=== PATIENT | male | born 1940 | race Caucasian/White ===

== ENCOUNTER → 2020-11-26 15:24 | Outpatient (CLI) | payer MEDICARE, SELFPAY ==
--- NOTE | 2020-11-26 15:32 | DI.MRI.S_ITS ---
PROCEDURE: MR STROKE Pre- and post-contrast brain MRI, non-contrast brain MR angiogram, pre- and postcontrast neck MR angiogram INDICATIONS: Personal history of transient ischemic attack (TIA) TECHNIQUE: Brain: Noncontrast axial T1 spin echo, axial T2 fast spin echo, sagittal and axial FLAIR, coronal T2 fast spin echo, axial gradient echo, axial diffusion and ADC through the brain. After the administration of contrast, axial 3D VIBE of the cranial vasculature and brain. Brain MRA: Non-contrast 3-D time of flight MR angiogram, with multiple rfpjuzo-muflyicsy-jhpmoipxse (MIP) reformats performed. Neck MRA: Axial and sagittal TruFISP through the neck. Coronal dynamic MR angiogram during administration of contrast in the arterial and venous phases, with 3-dimenstional sdmkjmv-buvjhkpan-qqlxjrpceg (MIP) reformats constructed from subtraction images. COMPARISON: CT, HEAD WITHOUT CONTRAST, 01/03/2017, 13:27. FINDINGS: Image quality: Excellent. BRAIN: CSF spaces: Ventricles are normal in size and shape. Basal cisterns are patent. No extra-axial fluid collections. Brain: No intracranial bleeds or mass effects. Mild diffuse cerebral volume loss. Mild degree of patchy high FLAIR signal within the periventricular and subcortical white matter. Koenig-white matter interface is normal. Diffusion weighted images show no acute ischemic insults. Brainstem appears normal. Normal intravascular flow voids are present. No abnormal intracranial enhancement. Skull and face: Calvarial marrow signal is normal. Orbits appear normal. Sinuses: Sinuses and mastoids are clear. BRAIN MR ANGIOGRAM: Anterior circulation: Intracranial internal carotid arteries are normal in size and enhancement. The flow within the paired anterior cerebral arteries is normal and symmetric. The flow within the middle cerebral arteries is normal and symmetric. The anterior communicating artery is seen. No stenoses, occlusions, or aneurysms. Posterior circulation: The visualized portions of the vertebral arteries demonstrate normal caliber, and join to form a normal appearing basilar artery. The flow within the posterior cerebral arteries is normal and symmetric. No stenoses, occlusions, or aneurysms. NECK MR ANGIOGRAM: Carotids: Great vessels demonstrate a conventional anatomy as they arise from the aortic arch. The origins of the common carotid arteries appear patent. The calibers and courses of both common carotid arteries are normal. The bifurcation regions appear normal bilaterally. The internal carotid arteries demonstrate normal course and caliber. Posterior circulation: Right vertebral artery origin is patent. Left vertebral artery demonstrates a moderate origin stenosis. More superior portions of both vertebral arteries demonstrate normal course and caliber, and join to form a normal appearing basilar artery. Miscellaneous: Subclavian arteries appear patent. Pre-contrast images through the neck show no soft tissue abnormalities. IMPRESSION: BRAIN MRI: 1. Mild volume loss and small vessel ischemic disease. 2. No acute process. No recent infarct. BRAIN MR ANGIOGRAM: Negative cerebral MR angiography. NECK MR ANGIOGRAM: 1. No internal carotid artery stenosis bilaterally. 2. Patent right vertebral artery. Moderate stenosis of the left vertebral artery origin which is otherwise patent. Dictated by: Livan Elias M.D. on 11/27/2020 at 9:09 Approved by: Livan Elias M.D. on 11/27/2020 at 9:12
--- NOTE | 2020-11-26 15:33 | DI.US.S_ITS ---
PROCEDURE: US CAROTID DOPPLER BI INDICATIONS: Personal history of transient ischemic attack (TIA TECHNIQUE: Color and pulse Doppler interrogation was performed of both carotid systems, with image documentation and velocity measurements. COMPARISON: [facility], , CAROTID ARTERY DOPPLER BILAT, 02/16/2017, 9:44. FINDINGS: Stenosis calculations are based on SRU (Society of Radiologists in Ultrasound) criteria. Right side: Brachial blood pressure: 150/79 mm Hg. Common carotid artery peak systolic velocity: 86 cm/sec. Internal carotid artery peak systolic velocity: 67 cm/sec. Internal carotid artery end diastolic velocity: 29 cm/sec. External carotid artery peak systolic velocity: 82 cm/sec. ICA/CCA peak systolic ratio: 0.8 . Koenig scale imaging description: Mild plaque Percent internal carotid artery stenosis: Less than 50% . Vertebral artery: Flow direction is antegrade. Left side: Brachial blood pressure: 150/79 mm Hg. Common carotid artery peak systolic velocity: 83 cm/sec. Internal carotid artery peak systolic velocity: 56 cm/sec. Internal carotid artery end diastolic velocity: 24 cm/sec. External carotid artery peak systolic velocity: 55 cm/sec. ICA/CCA peak systolic ratio: 0.7 . Koenig scale imaging description: Mild scattered plaque. Percent internal carotid artery stenosis: Less than 50% . Vertebral artery: Flow direction is antegrade. IMPRESSION: Less than 50% bilateral internal carotid artery stenosis which appears similar prior examination. Dictated by: Jeferson Wilson [facility] Interpreted: Demond Morrison MD on 11/26/2020 at 16:40 Approved by: Demond Morrison M.D. on 11/26/2020 at 17:08
== END ==
PROVIDERS: PCP Student in an Organized Health Care Education/Training Program; Referring Provider Student in an Organized Health Care Education/Training Program; Visit Provider Student in an Organized Health Care Education/Training Program
DX: I65.23 Occlusion and stenosis of bilateral carotid arteries; I65.02 Occlusion and stenosis of left vertebral artery; I10 Essential (primary) hypertension; Z86.73 Personal history of transient ischemic attack (TIA), and cerebral infarction without residual deficits
CPT/HCPCS: 70548; 70553; 93880; A9579

== ENCOUNTER → 2020-12-22 15:45 | Outpatient (CLI) | payer MEDICARE, SELFPAY ==
--- NOTE | 2020-12-22 15:47 | DI.ECHO.S_ITS ---
[place]---------+ [facility] +---------+ : : [address] : : : : [id number] : : : : Phone: [phone] Echocardiogram Report + + :Name: ELIAS LAY Study Date: 12/22/2020 Height: 70 in : :[facility] ReadingLocation: Weight: 188 lb : : Gender: Male BSA: 2.0 m2 : :: 1940 Age: 80 yrs BP: 149/92 mmHg: :Reason For Study: HYPERTENSION : :Ordering Physician: MIKEY, : :PEPE Performed By: Radha Cade : :Referring: PEPE JENSEN : + + Interpretation Summary Normal left ventricle size with ejection fraction 55-60%. The aortic valve is mildly calcified. Mild aortic regurgitation. The ascending aorta is moderately enlarged (4.2 cm). Comparison is made with the echocardiogram of 03/16/2017, there has been no significant change. Procedure: A two-dimensional transthoracic echocardiogram with color flow and Doppler was performed. The study quality was technically adequate. Comparison is made with the echocardiogram of 03/16/2017. The patient was in sinus bradycardia with heart rates between 57-64 bpm during the exam. Left Ventricle: The left ventricle is normal in size and wall thickness. The ejection fraction is estimated to be 55-60%. There are no focal wall motion abnormalities. Diastolic parameters suggest probable normal left ventricular diastolic function and normal filling pressures. Right Ventricle: The right ventricle is normal in size and function. Atria: The left atrial size is normal. Right atrial size is normal. There is no Doppler evidence for an interatrial shunt. Mitral Valve: The mitral valve leaflets appear borderline thickened, but open well. There is no mitral regurgitation noted. Aortic Valve: The aortic valve is trileaflet. The aortic valve is mildly calcified. There is no aortic valve stenosis. There is mild aortic regurgitation. Tricuspid Valve: The tricuspid valve is normal in structure and function. There is trace tricuspid regurgitation. Pulmonary artery pressures cannot be estimated because of the lack of a measurable TR jet velocity but the IVC suggests a CVP of around 3 mmHg. Pulmonic Valve: The pulmonic valve leaflets are thin and pliable; valve motion is normal. There is no pulmonic valvular regurgitation. Great Vessels: The aortic root is normal size. The ascending aorta is moderately enlarged. The IVC is of normal diameter and collapses greater than 50% with a sniff. This suggests a low right atrial pressure of 3 mm Hg. Pericardium/ Pleura There is no pericardial effusion. There is no pleural effusion. MMode/2D Measurements & Calculations LVIDd: 5.1 cm LVOT diam: 2.0 cm LVIDs: 3.4 cm Ao root diam: 3.2 cm FS: 33.1 % asc Aorta Diam: 4.2 cm EPSS: 1.0 cm Ao Arch Diam (Prox Trans): 2.9 cm IVSd: 1.00 cm LVPWd: 0.94 cm LV sinclair. diameter/BSA (cm/m^2): 2.5 LV sys. diameter/BSA (cm/m^2): 1.7 LA A2 area: 19.6 cm2 RA long axis: 5.3 cm LA A4 area: 16.5 cm2 RA area: 14.0 cm2 LA length (vol): 5.4 cm RA vol: 31.4 ml LA vol: 51.0 ml RA : 15.4 ml/m2 LA vol index: 25.1 ml/m2 IVC diam: 1.5 cm RVD1 (basal): 3.5 cm TAPSE: 2.2 cm Doppler Measurements & Calculations Ao V2 max: 156.0 cm/sec LVOT Max Byron: 89.2 cm/sec Ao V2 mean: 99.3 cm/sec LV V1 max P.2 mmHg Ao max P.7 mmHg LV V1 VTI: 18.9 cm Ao mean P.6 mmHg RAJANI(I,D): 1.8 cm2 Ao V2 VTI: 32.5 cm RAJANI(V,D): 1.8 cm2 sev ratio: 0.58 RAJANI indexed to BSA (cm^2/m^2): 0.89 MV E max byron: 70.6 cm/sec PA V2 max: 116.0 cm/sec MV A max byron: 83.8 cm/sec PA V2 mean: 71.6 cm/sec MV E/A: 0.84 PA mean P.4 mmHg Med Peak E' Byron: 8.2 cm/sec PA pr(Accel): 43.0 mmHg E/E' med: 8.6 Lat Peak E' Byron: 8.8 cm/sec E/E' lat: 8.0 E/e' average: 8.3 MV dec time: 0.23 sec SV(LVOT): 59.1 ml Electronically signed by: Litzy Vela on Reading Physician:12/23/2020 08:24 AM
== END ==
PROVIDERS: PCP Student in an Organized Health Care Education/Training Program; Referring Provider Student in an Organized Health Care Education/Training Program; Visit Provider Student in an Organized Health Care Education/Training Program
DX: I10 Essential (primary) hypertension (principal); Z86.73 Personal history of transient ischemic attack (TIA), and cerebral infarction without residual deficits; I35.1 Nonrheumatic aortic (valve) insufficiency; I51.7 Cardiomegaly
CPT/HCPCS: 93306

== ENCOUNTER 2021-01-06 03:46 | Emergency (ER) | payer MEDICARE, SELFPAY ==
[2021-01-06 04:00] VITALS: BP 159/72; PULSE 70; RESP 16; TEMP 36.7; O2SAT 98; BMI 26.9
--- NOTE | 2021-01-06 04:47 | ED_ITS ---
HPI - Skin/Abscess/Foreign Bdy General Chief complaint: Skin/Abscess/Foreign Body Stated complaint: thinks surgery site is infected on back Time Seen by Provider: 01/06/21 03:48 Source: patient Mode of arrival: Ambulatory Limitations: no limitations History of Present Illness HPI narrative: 80M nonsmoker with history of TIA presents with a chief complaint of some pain and redness on his back at the location of biopsies performed 2 weeks ago by his primary care provider. He had been doing well but for the past few days he states it become increasingly red, itchy and painful. He denies any drainage. He has had no fever chills. Denies any chest pain or shortness of breath. Onset (ago): day(s) Tetanus up to date: yes Location: back Severity: mild Quality: burning, aching and pruritic Pain Consistency: constant Relieving factors: none Exacerbating factors: none Associated symptoms: denies other symptoms Treatments prior to arrival: none Related Data Previous Rx's Medication Instructions Recorded cephalexin 500 mg PO BID #14 cap 01/06/21 Allergies Allergy/AdvReac Type Severity Reaction Status Date / Time No Known Allergies Allergy Uncoded 12/28/17 12:59 Review of Systems Constitutional Constitutional: Denies chills, Denies fatigue, Denies fever(s), Denies frequent falls, Denies lethargy and Denies weakness Eyes Eyes: Denies change in vision, Denies eye discharge, Denies irritation and Denies loss of vision ENT Ears, Nose, Mouth, and Throat: Denies change in voice, Denies dizziness, Denies neck pain, Denies sore throat and Denies throat swelling Cardiovascular Cardiovascular: Denies chest pain, Denies irregular heart rhythm, Denies lightheadedness, Denies palpitations, Denies dyspnea, Denies dyspnea on exertion and Denies orthopnea Respiratory Respiratory: Denies cough, Denies dyspnea, Denies dyspnea on exertion and Denies wheezing Gastrointestinal Gastrointestinal: Denies abdominal pain, Denies change in bowel habits, Denies diarrhea, Denies nausea and Denies vomiting Musculoskeletal Musculoskeletal: Denies neck pain and Denies numbness Integumentary/Breasts Skin/Breast: Denies pruritus, Reports erythema, Denies rash and Reports wounds Neurologic Neurologic: Denies behavioral changes, Denies confusion, Denies dizziness, Denies frequent falls, Denies loss of vision, Denies numbness and Denies weakness Psychiatric Psychiatric: Denies anxiety, Denies behavioral changes, Denies confusion, Denies depression, Denies homicidal ideation and Denies suicidal ideation Endocrine Endocrine: Denies fatigue, Denies flushing and Denies palpitations Hematologic/Lymphatic Hematologic/Lymphatic: Denies easy bruising Allergic/Immunologic Allergic/Immunologic: Denies urticaria, Denies throat swelling and Denies wheezing Patient History Social History Smoking Status: Never smoker Smoking Status: Never smoker alcohol intake frequency: 0-2 drinks per day Substance Use Type: does not use Exam Narrative Exam Narrative: GEN: AOx3 and in mild distress EYES: Pupils are equal, round, and reactive to light and accommodation. Extraoccular muscles are intact bilaterally. There is no subconjunctival hemor rhage or exudate. CHEST: Lungs are clear to auscultation bilaterally and free of wheezes, rales, or rhonchi. Heart rate is regular rhythm, there are no murmurs, clicks, rubs, or gallops. There is no chest wall tenderness. ABD: Abdomen is soft and nontender. There is no guarding or rebound. Bowel sounds are normal in all 4 quadrants. There is no mass or organomegaly. EXT: Full painless ROM of all extremities with no loss of sensation or strength. SKIN: Deep red, pruritic skin measuring 2 x 2 cm at the site of both biopsy locations. There is no drainage, fluctuance or induration. Initial Vital Signs Initial Vital Signs: Vital Signs Temperature 98.0 F 01/06/21 04:00 Pulse Rate 70 01/06/21 04:00 Respiratory Rate 16 01/06/21 04:00 Blood Pressure 159/72 H 01/06/21 04:00 Pulse Oximetry 98 01/06/21 04:00 Course Vital Signs Vital signs: Vital Signs - 8 hr 01/06/21 04:00 Temperature 98.0 F Pulse Rate 70 Respiratory Rate 16 Blood Pressure 159/72 H Pulse Oximetry 98 MDM - Skin/Abscess/Foreign Bdy MDM Narrative Medical decision making narrative: Patient had been using Neosporin for the past few weeks and despite this his symptoms have worsened over the past few days. There was some discussion about whether this was natural healing or the presence of infection but given the fact that he had been doing better and now is developing pain and redness we elected to treat with antibiotics. He has been given return precautions and has had questions answered to his apparent satisfaction Discharge Plan Departure Patient Disposition: Home Clinical Impression: Cellulitis Qualifiers: Site of cellulitis: trunk Site of cellulitis of trunk: back Qualified Code(s): L03.312 - Cellulitis of back [any part except buttock] Instructions: DI for Wound Infection Activity Restrictions/Additional Instructions: *You have been diagnosed with [ mild cellulitis at biopsy site ] *What to do: *Take medications as directed *Follow up with your primary care provider in 2-3 days, call for an appointment. Let them know you were seen in the Emergency Department and that we ask that you be seen in follow up *Return to ER if you should have any new, worsening or concerning symptoms Prescriptions: New cephalexin 500 mg capsule 500 mg PO BID Qty: 14 RF: 0 Referrals: Herlinda Mayberry MD [Primary Care Provider] -
== END 2021-01-06 05:03 | disposition home or self-care (01) ==
PROVIDERS: Emergency Provider Emergency Medicine; PCP Student in an Organized Health Care Education/Training Program
DX: L03.312 Cellulitis of back [any part except buttock and flank] (principal)
CPT/HCPCS: 99281

== ENCOUNTER → 2021-06-24 12:34 | Outpatient (CLI) | payer MEDICARE, SELFPAY ==
--- NOTE | 2021-06-24 | DI.RAD.S_ITS ---
PROCEDURE: XR KNEE RT 3V INDICATIONS: RIGHT KNEE PAIN TECHNIQUE: 3 views of the knee were acquired. COMPARISON: [facility], , KNEE 3V LEFT, 06/20/2017, 12:06. FINDINGS: Bones: No acute, displaced fracture. Mild medial compartment joint space narrowing with small osteophytosis. Mild to moderate narrowing of the lateral patellofemoral articulation with small osteophytosis. No suspicious bony lesions. Soft tissues: Small joint effusion. No suspicious soft tissue calcifications. IMPRESSION: No acute osseous abnormality. Dictated by: Javier Beckwith M.D. on 06/24/2021 at 13:14 Approved by: Javier Beckwith M.D. on 06/24/2021 at 13:19
== END ==
PROVIDERS: PCP Student in an Organized Health Care Education/Training Program; Referring Provider Student in an Organized Health Care Education/Training Program; Visit Provider Student in an Organized Health Care Education/Training Program
DX: M25.561 Pain in right knee (principal)
CPT/HCPCS: 73562

== ENCOUNTER → 2021-07-15 07:57 | Outpatient (CLI) | payer MEDICARE, SELFPAY ==
--- NOTE | 2021-07-15 | DI.US.S_ITS ---
PROCEDURE: US ABD AORTA ANEURYSM SCREEN INDICATIONS: HISTORY SMOKING TECHNIQUE: Real time scanning was performed of the aorta and iliac arteries, with image documentation. COMPARISON: None. FINDINGS: Aorta: Proximal aortic diameter measures 2.6 cm. Mid-aorta measures 1.7 cm. Distal aortic diameter is 1.6 cm. Iliac arteries: Right common iliac artery measures 1.2 cm. Left common iliac artery measures 1.2 cm. IMPRESSION: No sonographic evidence of aortic aneurysm. Dictated by: Javier Beckwith M.D. on 07/15/2021 at 9:17 Approved by: Javier Beckwith M.D. on 07/15/2021 at 9:19
== END ==
PROVIDERS: PCP Student in an Organized Health Care Education/Training Program; Referring Provider Internal Medicine Cardiovascular Disease; Visit Provider Internal Medicine Cardiovascular Disease
DX: Z13.6 Encounter for screening for cardiovascular disorders (principal); Z87.891 Personal history of nicotine dependence
CPT/HCPCS: 76706

== ENCOUNTER → 2022-06-16 13:37 | Outpatient (CLI) | payer MEDICARE, SELFPAY ==
[2022-06-16 14:33] LABS: Add Manual Diff / Slide Review NO; Basophils Absolute Auto 0 /uL (0-100); Basophils Percent Auto 0.5 % (0-2); Eosinophils Absolute Auto 100 /uL (0-450); Eosinophils Percent Auto 2.1 % (2-4); Hematocrit 40.2 % (41-53); Hemoglobin 14.1 g/dL (13.5-17.5); Lymphocytes Absolute Auto 1500 /uL (1100-4500); Lymphocytes Percent Auto 25.2 % (25-40); Mean Corpuscular HGB Conc 34.9 % (30-36); Mean Corpuscular Hemoglobin 32.8 PG (26-34); Mean Corpuscular Volume 93.9 fL (80-100); Monocytes Absolute Auto 600 /uL (0-900); Monocytes Percent Auto 9.8 % (3-14); Neutrophils Absolute Auto 3700 /uL (1500-7000); Neutrophils Percent Auto 62.4 % (50-75); Platelet Count 189 X10^3/uL (150-400); Red Blood Cell Count 4.29 X10^6/uL (4.5-5.9); Red Cell Distribution Width 13.1 % (11.6-14.8)
[2022-06-16 14:41] LABS: Hemoglobin A1C% w Est Avg Glu 5.3 % (4.0-6.0)
[2022-06-16 15:00] LABS: BUN Creatinine Ratio 15.4 (6-22); Blood Urea Nitrogen 24 mg/dL (9-20); Calcium 8.8 mg/dL (8.4-10.2); Carbon Dioxide 26 mmol/L (22-32); Chloride 103 mmol/L (98-107); Estimated Glomerular Filt Rate 44 mL/min (>60); Glucose 97 mg/dL (80-110); HEMOLYSIS < 15 (0-50); Potassium 4.5 mmol/L (3.4-5.1); Sodium 139 mmol/L (137-145)
== END ==
PROVIDERS: PCP Family Medicine; Referring Provider Orthopaedic Surgery; Visit Provider Orthopaedic Surgery
DX: Z01.818 Encounter for other preprocedural examination (principal); R73.9 Hyperglycemia, unspecified; Z01.812 Encounter for preprocedural laboratory examination
CPT/HCPCS: 36415; 80048; 83036; 85025; 93005

== ENCOUNTER → 2022-07-19 10:42 | Outpatient (CLI) | payer MEDICARE, SELFPAY ==
[2022-07-19 12:22] LABS: COVID19 -Nasal RAPID Negative (Negative)
== END ==
PROVIDERS: PCP Family Medicine; Referring Provider Orthopaedic Surgery; Visit Provider Orthopaedic Surgery
DX: Z20.822 Contact with and (suspected) exposure to COVID-19 (principal)
CPT/HCPCS: 87635; C9803

== ENCOUNTER 2022-07-21 11:19 | Day surgery (SDC) | payer MEDICARE, SELFPAY ==
[2022-07-13 13:32] VITALS: BMI 26.2
[2022-07-21] VITALS (12 sets, daily range): BP systolic 100–148; BP diastolic 58–86; PULSE 55–76; RESP 11–18; TEMP 35.3–36.6; O2SAT 95–99; BMI 26.2
--- NOTE | 2022-07-21 06:00 | DI.RAD.S_ITS ---
PROCEDURE: XR KNEE RT 1TO2V INDICATIONS: prosthesis placement TECHNIQUE: 2 view(s) of the knee acquired. COMPARISON: [facility], , KNEE 3V LEFT, 06/20/2017, 12:06. FINDINGS: Bones: Patient is status post knee joint arthroplasty. Hardware components are in expected positions. Visualized bony structures are intact. Soft tissues: Overlying postoperative changes are noted. IMPRESSION: Postop changes from right total knee arthroplasty with anatomic right knee alignment. Dictated by: Michael Tavares M.D. on 07/21/2022 at 16:16 Approved by: Michael Tavares M.D. on 07/21/2022 at 16:16
[2022-07-21] MEDS: LACTATED RINGERS 1,000 ML 42 ML IV ×2 (12:04→15:01)
[2022-07-21] MEDS: CELECOXIB 200 MG CAPSULE PO (12:05)
[2022-07-21] MEDS: ACETAMINOPHEN 325 MG TABLET 975 MG PO (12:05)
[2022-07-21] MEDS: PREGABALIN 75 MG CAPSULE PO (12:06)
--- NOTE | 2022-07-21 13:35 | PM.PREOP ---
Pre-operative Note COVID-19 COVID-19 status: Negative Result date/Date tested (Pos, Neg/Pending): 07/19/22 Interval Note History & Physical reviewed/Exam performed by Physician: Yes Changes to H&P: No
[2022-07-21] MEDS: CEFAZOLIN 2 GM/100 ML PREMIX 100 ML IV ×2 (14:12→22:46)
[2022-07-21] MEDS: TRANEXAMIC ACID 1,000 MG VIAL 1000 MG INJ ×2 (14:20→15:12)
--- NOTE | 2022-07-21 14:29 | SUR.OPER ---
Supine on padded OR bed. Pillow under head, arms secured on padded armboards <90 degree abduction. Safety belt across torso. Non-operative leg secured with tape over blanket over lower leg. Operative leg secured in De[employer]o positioner.
[2022-07-21] MEDS: BUPIVACAINE LIPOSOME 266 MG/20 ML VIAL INJ (14:36)
[2022-07-21] MEDS: MORPHINE 4 MG/ML INJ INJ (14:37)
[2022-07-21] MEDS: BUPIVACAINE 0.25% (PF) 60 ML, EPINEPHrine 0.3 MG INJ (14:37)
--- NOTE | 2022-07-21 15:41 | PM.OP.1 ---
Operative Date/Time/Diagnoses Date of procedure: 07/21/22 Time of procedure: 15:41 Pre-op diagnosis: Right knee osteoarthritis Post-op diagnosis: same Procedure & Clinicians Procedure: Right total knee replacement Same procedure as scheduled: Yes Indications: The patient has had progressively worsening right knee pain with radiographic changes consistent with arthritis. Non-operative management has failed and the patient has requested total knee replacement. The risks, benefits and alternatives to surgery were discussed with the patient prior to proceeding. Risks discussed included, but were not limited to, failure to relieve pain, stiffness, infection, nerve damage, deep venous thrombosis, pulmonary embolism, stroke, coma, heart attack, permanent paralysis and , as well as the potential need for eventual revision of the prosthetic. Surgeon: Silvestre Welsh Component Assembler Supervisor: Quang Arenas Click Yes if Unassisted: No Anesthesia Type: Spinal, Sedation and Local Operative Notes Findings: Severe medial and moderate patellofemoral osteoarthritis with relative preservation of the lateral compartment. Closure Type: primary Specimen(s): none sent Prosthetic devices, grafts, tissues, transplants, or devices: Implants used in this procedure were manufactured by the [employer] and [employer] and included the BCS II Journey total knee replacement with a size 7 right cobalt chromium femur, a size 6 right non porous tibial base plate, a 9 mm cross-linked polyethylene tibial insert and a 32 mm oval Ny II patella. Applied: implant(s) Estimated Blood Loss (mL): 25 Blood products transfused: none Tourniquet time (min): 45 Procedure in detail: The patient was seen in the pre-operative area, where the patient identified the right knee as the operative site and this was marked with my initials. The patient received pre-operative antibiotics, and was taken to the operating room and placed on the operative table in the supine position. After satisfactory anesthesia, a viner operator out was performed. The right leg was encircled with a tourniquet about the proximal thigh, and the leg was prepared from the toes to the tourniquet with ChloroPrep in the usual fashion and draped through sterile drapes. The leg was elevated and exsanguinated with Eschmark bandage and the tourniquet inflated to 250 mmHg pressure. The knee was approached through an approximately 16 cm incision centered over the patella and carried into the knee through a medial parapatellar arthrotomy. The anterior osteophytes and soft tissues were removed. The rotational landmarks of Olga's line and the transepicondylar axis were marked on the femur with electrocautery, and intramedullary guide holes for the femur and tibia were created. The distal femoral cut was made in 6 degrees of valgus using the intramedullary guide at the primary cut setting. The proximal tibial cut was then made using the intramedullary guide, taking 9 mm of bone off the less involved side. The extension gap was checked and the rotation of the femoral component confirmed with the gap balancing system. The anterior, posterior and chamfer cuts were then made. The posterior osteophytes and soft tissues were then removed. The posterior capsule was injected with part of a mixture of 60 ml 0.25% Marcaine mixed with 20 ml Exparel and 4 mg of morphine for post-operative pain control. The remainder of this mixture was injected into the capsule and subcutaneous tissues during cement curing. The tibia was prepared with the rotation set by an extra medullary guide. Trial tibial and femoral components were then placed and the intercondylar notch cut through the femoral trial. Range of motion was 0-145 degrees, with good stability throughout the range. The patella was then cut to accommodate the patellar prosthetic. There was no need for a lateral release. The trials were then removed, and the femoral hole plugged with a bone plug. The bone was prepared with pulsatile lavage, and dried with a sponge. Cement was applied and the final prosthetics placed. Excess cement was removed during and after cement curing. After confirming there was no extruded cement posteriorly, the final tibial insert was placed. The knee was copiously irrigated and the tourniquet deflated. Hemostasis was obtained. The capsule was closed with interrupted # 2 polyester suture. The subcutaneous layer was closed with 3-0 Vicryl, and the skin with a running 3-0 V-Lock suture and Dermabond. An Aquacel Ag dressing was applied and the patient was taken to recovery having tolerated the procedure well. The services of Mr. Arenas were required as a skilled civil engineering assistant during this procedure to provide retraction, exposure and positioning of the limb for safety while the saw was used and to facilitate the rapid completion of the procedure. This could not have been completed expediently without his availability. Complications: none Post-operative Condition: stable Disposition: PACU Plan for aftercare: The patient will be maintained on a standard total knee replacement protocol with weight bearing as tolerated. The patient will receive aspirin and sequential compression devices for DVT prophylaxis. The patient will be discharged home when safe for the home environment.
[2022-07-21] MEDS: IBUPROFEN 400 MG TABLET PO ×2 (17:23→20:31)
[2022-07-21] MEDS: ACETAMINOPHEN 325 MG TABLET 650 MG PO ×2 (17:24→22:46)
[2022-07-21] MEDS: LACTATED RINGERS 1,000 ML 100 ML IV (17:25)
--- NOTE | 2022-07-21 18:45 | PC.NURSE ---
Ortho: Pt received from pacu, denies any pain, vss. Received a block and pt is not able to move toes, sensation at waist. Brisk cap refill, ppp, feet =/warm. He has had no void since surgery. Tolerated general diet at dinner with out problems. No pain. Spouse at bedside most of shift. Pt understands he can't be up without assist.
[2022-07-21] MEDS: DOCUSATE 100 MG CAPSULE PO (20:31)
[2022-07-21] MEDS: ASPIRIN EC 81 MG TABLET PO (20:31)
[2022-07-22] VITALS: BP 141/68; PULSE 56; RESP 17; TEMP 35.9; O2SAT 95
[2022-07-22] MEDS: IBUPROFEN 400 MG TABLET PO ×3 (00:43→08:17)
[2022-07-22 04:00] VITALS: BP 129/70; PULSE 68; RESP 19; TEMP 36.1; O2SAT 97
[2022-07-22] MEDS: ACETAMINOPHEN 325 MG TABLET 650 MG PO ×2 (05:01→12:08)
[2022-07-22] MEDS: CEFAZOLIN 2 GM/100 ML PREMIX 100 ML IV (05:02)
[2022-07-22 05:08] LABS: Hemoglobin 12.3 g/dL (13.5-17.5)
--- NOTE | 2022-07-22 07:41 | PM.DS.1 ---
History of Present Illness History of Present Illness Date Patient Seen: 07/22/22 Time Patient Seen: 07:41 Chief complaint: PAC Call - Right TKA *OPB* Narrative: This is contained in the chart previously completed note. Please refer to that note for this information. Discharge Providers Provider Date of admission: July 21, 2022 Discharge Date: 07/22/22 Primary care physician: Neto Benítez MD Consults: 07/21/22 16:23 Consult to Discharge Planning Routine Comment: Consult to Physical Therapy Evaluate & Treat Comment: Physician Instructions: postop TKA protocol Discharge provider: Silvestre Welsh MD Summary Hospital Course Discharge Diagnosis: 1. Right knee osteoarthritis 2. Post hemorrhagic anemia Hospital Course: The patient was admitted to the hospital and taken directly to the operating room on July 21, 2022 where he underwent a right total knee replacement without complications. Postoperative day 1 he was stable with reasonable pain control. He had a mild, anticipated post hemorrhagic anemia. Status at Discharge Cognitive/behavioral status at discharge: at baseline, oriented Functional status at discharge: uses cane/walker Overall status at discharge: patient is progressing back to baseline Time Spent with Patient Time spent: Less than 30 minutes Exam Vital Signs (past 8 hours): - 07/22/22 00:00 07/22/22 04:00 Temperature 96.6 F L 96.9 F L Pulse Rate 56 L 68 Respiratory Rate 17 19 Blood Pressure 141/68 H 129/70 Pulse Oximetry 95 97 Oxygen Delivery Method Room Air Oxygen Flow Rate 0 Narrative Exam Narrative: Right leg wound is dressed with no drainage on the bandage. Calf is soft. Light touch and motion are intact in the right lower extremity. Objective Labs Result Diagrams: 07/22/22 04:45 Labs: Laboratory Results - last 24 hr 07/22/22 04:45 Hgb 12.3 L Hct 36.0 L PFSH Medical History (Updated 07/13/22 @ 14:14 by Kimberlyn Wilder RN) Arthritis Depression Elevated cholesterol Enlarged prostate Gout Hearing impaired Osteoarthritis Surgical History (Updated 07/13/22 @ 14:13 by Kimberlyn Wilder RN) Hx of thumb surgery Hx of tonsillectomy Social History household members: spouse Smoking Status: Former smoker alcohol intake: current Discharge Assessment & Plan Assessment and Plan Assessment: Stable postoperative day 1 status post right total knee replacement with mild, anticipated post hemorrhagic anemia. Plan of Treatment: Discharge to home. Follow up at my office in 10-14 days. Discharge prescriptions have been sent to the pharmacy for oxycodone. He has been instructed in the use of Tylenol and ibuprofen for additional pain control in the use of low-dose aspirin as DVT prophylaxis. Discharge Plan Discharge Plan Patient Disposition: Home Discharge orders & Medications Discharge Orders: Discharge (Order); Ordered 07/22/22 Ordered By: Silvestre Welsh Prescriptions: New acetaminophen 325 mg Tablet 650 mg PO Q6HR Qty: 250 0RF aspirin 81 mg Tablet,Delayed Release (Dr/Ec) 81 mg PO BID Qty: 84 0RF ibuprofen 400 mg Tablet 400 mg PO Q4HR Qty: 250 0RF oxycodone 5 mg Tablet 5 mg PO Q4H PRN (Reason: Pain, Moderate (4-6)) Qty: 40 0RF Discontinued aspirin 325 mg Tablet 325 mg PO DAILY ibuprofen 200 mg Tablet 400 mg PO BID PRN (Reason: Pain) Follow up/Referrals: Silvestre Welsh MD [Physician] - As previously scheduled Neto Benítez MD [Primary Care Provider] - Diet/Activity/Treatments Diet: Diet as Tolerated and Regular Activity: You may bear weight as tolerated on your right leg. Cold/Heat Therapy: You may apply ice for 15 minutes of every hour as needed to the right knee for pain control. Skin/Wound/Dressing Care Report to your healthcare provider any signs of infection, such as:: chills, fever, night sweats, increased pain, unusual drainage and unusual redness Dressing: You may remove the Agus wrap 3 days after surgery and shower normally. Leave the deeper dressing in place until your follow-up. Contact the office if the central strip of the deeper dressing becomes saturated with either water or blood. Visit Report/Discharge Packet Instructions: DI for Knee Replacement Stand Alone Forms: Surgery Discharge Discharge Data Primary Care Provider: Neto Benítez Attending Provider: Silvestre Welsh
[2022-07-22 07:55] VITALS: BP 132/68; PULSE 62; RESP 16; TEMP 36.1; O2SAT 97
[2022-07-22] MEDS: ASPIRIN EC 81 MG TABLET PO (08:17)
[2022-07-22] MEDS: DOCUSATE 100 MG CAPSULE PO (08:17)
--- NOTE | 2022-07-22 09:22 | CM.DANOTE ---
DCP Assessment: Payor confirmed: [employer] PCP confirmed: MD Jackelin Pt is a 82 y.o. M who presented to the hospital for a planned R TKA with Dr. Welsh. Pt brought up to the AC unit for further management and evaluation of surgical procedure. DCP met with pt this morning to discuss discharge needs. Pt sitting up in bed watching TV. DCP introduced self and role. Pt states he lives in [place] with his spouse, Kacie, in a three story house. Pt states that he is independent at baseline. Pt denies DME use but owns a walker and cane. Pt states he still drives POV. Pt states that he has outpatient PT set up. Pt denies any resources at this time. White board updated and instructed to call. Pt thankful for discussion. P: Pt to work with PT this morning for eval. Once cleared, pt can discharge home via spouse POV. Macie Regalado RN/KASSANDRA Discharge Planning/Care Management Advanced directive, confirm from FAMILY Start: 07/21/22 16:51 Freq: Q24H Status: Active Protocol: Document 07/21/22 17:06 CEW (Rec: 07/21/22 17:06 CEW [id number]) Advance Directive, confirm on record Time 16:30 Person contacted pt/spouse Copy received No CM Discharge Assessment Start: 07/22/22 09:20 Freq: Status: Active Protocol: Document 07/22/22 09:20 AJ (Rec: 07/22/22 09:20 AJ [id number]) Discharge Planning Assessment Assigned Blender Snuff Macie Regalado RN/KASSANDRA Advance Directives? Yes Advance Directives on File No History Provided By Patient Prior Living Arrangements House Household Members spouse Type of transporation used prior to Drives own vehicle admit Independent with ADL's Yes Is patient alert and oriented? Yes DME Already Rented / Owned FWW / Walker,Cane Discharge Plan Home Transportation Arrangement Spouse POV Referrals Initiated None needed Additional Comment Pt has outpatient PT set up. Whiteboard Updated in Patient Room with Yes name and ext. # of Blender Snuff Comment Instructed to call Review Status In Process Please Provide Date Initial DC 07/22/22 Assessment Was Performed Next Review Type Continued Stay Review Pre-Anesthesia Assessment Start: 07/13/22 13:32 Freq: Status: Active Protocol: Document 07/13/22 13:32 CAB (Rec: 07/13/22 14:29 [facility] [id number]) Pre-Anesthesia Assessment Patient Information Reviewed Via Phone Assessment Assessment Completed With Patient Diagnostic Results BMP/CMP,CBC,EKG Comment Labs/ECG @ 06/16/22, COVID screen @ 07/19/22 Primary Care Provider Neto Benítez Seen Specialist in Last 12 Months Yes Specialist Seen Orthopedist Primary Language Uzbek Sales Branch Manager Required No Height 177.8 cm Weight 83.007 kg Body Mass Index (BMI) 26.2 Hearing Ability Hard of Hearing,Use of Hearing Aid Visual Assist Glasses Dentition Type Teeth, Natural Present,Teeth, Missing Barriers to Learning Auditory,Memory Hx Anesthesia Reactions No Hx Family Anesthesia Reaction No Hx Malignant Hyperthermia No Hx Blood Transfusions No Anesthesia Review Requested No alcohol intake current alcohol intake frequency a few times a week Smoking Status Former smoker how long ago did patient quit smoking Quit 1960 Substance Use Type does not use Pain Present Pain Reported Musculoskeletal Symptoms Joint Pain History of Falling (Recent or History of Yes ) Patient is completely paralyzed or No completely immobile Mental Status Oriented to own ability Is patient on oxygen? No Does patient have ARCHER/SOB No: Wheeze with heavy exertion Hx Sleep Apnea No Currently Taking a Beta Ashley No Can You Climb a Flight of Stairs Without Yes SOB Hx Chest Pain No Hx SOB No Hx Syncope or Dizziness No Anti-Coagulant Therapy No Has a Exercise Physiology Professor No Cardiac Testing No Hx Pacemaker/ICD No Pacemaker Rep Required? No Diet Type At Home Regular Dysphagia No Gastrointestinal Symptoms Constipation Urinary Catheter Present No Hx Urinary Self Catheterization No Diabetes No HgbA1C 5.3 Date 06/16/22 Hx Drug Resistant Organism No Presence of External or Internal Medical No Devices Have you had any close contact with No someone diagnosed with COVID-19? Received a COVID vaccine? Yes Received all doses? Yes Marital Status Lives With spouse Current Living Arrangements House Number of Floors (Floors) 3 or More Floors Support System Spouse Does the Patient Have Assistance After Yes Surgery Patient Discharge Plan Description Return Home Comment Pt advised overnight length of stay per surgeon Feels Safe in Current Environment Yes Been Physically Hurt or Threatened By a No Person in Current Environment Do you have thoughts of harming yourself None or others? Are you currently considering suicide? No Do you have a plan to hurt yourself or No Plan others? Do You Have Any Spiritual Beliefs That No May Affect Your HC Choices? Do You Have Any Cultural Practices That No May Affect Your HC Choices? Who Can We Speak to About Patient's Care Family, friends Identifying Code for Release of Patient Declines to issue Information Health Care Proxy/Next of Kin Brook () Health Care Proxy Emergency Contact Name Brook () Emergency Contact Advance Directives? Yes Advance Directives on File No Requested Patient Bring Advanced Yes Directives DOS Power of Library Aide Yes Power of Library Aide Name Brook () Power of Library Aide PAC Instructions Durable medical equipment, Medications to take/avoid, Nasal antibiotic,No ETOH/ petroleum product on skin DOS, NPO,Pre-surgical wash,Sensory aids,Sturdy shoes/comfortable clothes,Do not bring valuables and remove jewelry
[2022-07-22] MEDS: OXYCODONE IR 5 MG TABLET PO (10:06)
--- NOTE | 2022-07-22 10:18 | PT.IIE ---
Current Diagnoses Unilateral primary osteoarthritis, right knee (07/21/22) Surgery Performed Operation Date: 07/21/22 13:15 Actual Procedures p Total Knee Arthroplasty(Right) - Silvestre Welsh MD Surgical History (Last Updated 07/13/22 @ 14:13 by Kimberlyn Wilder, RN) Hx of thumb surgery Hx of tonsillectomy Medical History (Last Updated 07/13/22 @ 14:14 by Kimberlyn Wilder, RN) Arthritis Depression Elevated cholesterol Enlarged prostate Gout Hearing impaired Osteoarthritis Physical Therapy Inpatient Evaluation/Re-Eval M1 PT/OT-IP Prior Functional Status Start: 07/22/22 13:25 Freq: NEEDED Status: Active Protocol: Document 07/22/22 10:18 AB (Rec: 07/22/22 13:35 AB [id number]) Medical Review Prior Functional Status Medical History Reviewed Yes Communication able to make needs known Mobility and Gait pt stated taht he is independent with all mobilities and ambulation without AD Social History Household Members spouse Living Arrangements House Number of Floors (Floors) Two Floors Number of Stairs To Enter/Railing? pt will stay on main level of the house which has 4 steps L rail ascedning to get in to that level 1 step to enter the house Home Environment Standard Height Toilet,Walk in Shower Home Equipment Front Wheel Walker,Straight Cane,Raised Toilet Seat Without Armrests,Shower Seat with Backrest,Grab Bars Near Toilet,Grab Bars In Shower M2 PT-IP Current Condition Start: 07/22/22 13:25 Freq: NEEDED Status: Active Protocol: Document 07/22/22 10:18 AB (Rec: 07/22/22 13:35 AB [id number]) Physical Therapy Current Condition Current Condition Evaluation Date 07/22/22 Treatment Diagnosis s/p R TKA ;difficulty in walking Onset Date 07/21/22 M3 PT-IP Subjective Start: 07/22/22 13:25 Freq: NEEDED Status: Active Protocol: Document 07/22/22 10:18 AB (Rec: 07/22/22 13:35 AB [email or web address]) Subjective Physical Therapy Visit Type Type Initial Evaluation Visit Start Time 10:18 Visit Stop Time 11:15 Total Visit Minutes 57 Number of GLASS FRAME FITTER Visits 0 Physical Therapy Visit Comments Patient Comments agreeable to do PT Therapy Pain Assessment Pain When Pain Assessed At Rest Pain Present Pain Present Pain Reported Location Right Knee Intensity 6 Scale Used Numeric (0 - 10) Pain Behaviors Guarding,Holding Area Pain Management Techniques Apply Cold,Distraction, Elevation,Modification of Treatment,Re-positioning, Timing of Activity with Medications M4 PT-IP Mobility and Gait Start: 07/22/22 13:25 Freq: NEEDED Status: Active Protocol: Document 07/22/22 10:18 AB (Rec: 07/22/22 13:35 AB [id number]) PT-Bed Mobility Assessment Supine to Sit Supine to Sit Standby Assistance PT-Transfer Assessment Sit to and From Stand Sit to and from Stand Standby Assistance,Contact Guard Assistance,1 Person Assistance,Use of Upper Extremities Equipment Transfer Assistive Device Gait Belt,Front Wheeled Walker Orthotic/Prosthetic Devices or Brace: No Transfers Transfer Destination Chair Transfer Technique ambulated Transfer Ability Level of Assist Standby Assistance,Contact Guard Assistance,1 Person Assistance,Use of Upper Extremities Comments Mobility Comments pt completed supine to sit SBA . able to sit on EOB SBA. completed sit to stand CGA and cues and ambulated to the chair using FWW CGA. caregiver training conducted. educated spouse on how to use safety belt and how to assist pt. spouse was able to put safety belt on pt and assisted pt with sit to stand ambulation in the hallway ~ 100 ft using FWW CGA. pt can be impulsive and cued to slow down. educated pt and spouse with stair climbing. pt completed using L rail and PT assisting with first set min A. completed again with spouse assisting and completed safely . assisted pt back to his room. ambulated from w/c to chair using FWW SBA. positioned pt on the chair. call light and table placed within reach. pt and spouse without further concerns. Gait Assessment Gait Gait Assistance Required: Standby Assistance,Contact Guard Assist Distance (Feet) 100 Assistive Devices Assistive Device Gait Belt,Front Wheeled Walker Orthotic/Prosthetic Devices or Brace: No Gait Deviations General Gait Pattern Antalgic,Decreased Stride Length,Decreased Feet Clearance,Step-to Gait Factors Limiting Gait Function Factors Limiting Gait Function Decreased Activity Tolerance, Decreased Strength,Difficulty Following Directions,Limited Range of Motion,Pain,Poor Balance,Poor Safety Awareness Stair Climbing Assessment Evaluation Level of Assist On Stairs Contact Guard Assistance, Minimal Assistance,2 Person Assistance Devices Stair Climbing Assistive Devices Left Railing Technique/Endurance Stair Climbing Direction Ascend and Descend Stair Climbing Technique Step to Step Number of Steps Climbed 3 Query Text: Stair Climbing Set # Repetitions (reps) 2 PT-Balance Assessment Sitting Balance and Reactions Static Sitting Balance Ability Normal Dynamic Sitting Balance Ability Good Standing Balance and Reactions Static Standing Balance Ability Fair Dynamic Standing Balance Ability Fair Device Used FWW M5 PT-IP Objective Assessments Start: 07/22/22 13:25 Freq: NEEDED Status: Active Protocol: Document 07/22/22 10:18 AB (Rec: 07/22/22 13:35 [id number]) Orientation Orientation/Cognition Level of Alertness Alert Orientation Name,Place,Situation Language Function Ability No Deficits Noted Safety Awareness Decreased Safety Awareness Memory Description No Deficits Noted Gross Range of Motion Lower Extremity ROM Assessment Right Impaired Impairments R knee flexion : ~ 70 deg R knee extension : ~ 20 deg less to 0 Sensation Assessment Sensation Gross Sensation WNL Muscle Tone Muscle Tone WNL Yes M6 PT-IP Treatment Start: 07/22/22 13:25 Freq: NEEDED Status: Active Protocol: Document 07/22/22 10:18 AB (Rec: 07/22/22 13:35 [id number]) Physical Therapy Treatment Education Education Provided Precautions,Weight Bearing Status,Post-Op Packet,Safety M7 PT-IP Assessment and Plan Start: 07/22/22 13:25 Freq: NEEDED Status: Active Protocol: Document 07/22/22 10:18 AB (Rec: 07/22/22 13:35 [id number]) PT Summary Assessment and Plan Potential Rehabilitation Potential Good Status of Condition at Evaluation Stable Summary Impairments Pain,ROM,Strength,Balance, Coordination,Sensation,Tone, Cognition,Bed Mobility, Transfers,Gait,Activity Tolerance Assessment Summary pt requiring SBA to CGA with mobility using FWW. caregiver training conducted and spouse was able to assist pt with mobility. pt has outpt PT scheduled. pt may go home when medically stable. Goals Bed Mobility Goal Independent Transfer Goal Independent,Front Wheeled Walker Gait Goal Independent,Front Wheel Walker Gait Distance 200 Other Goals up/down 7 steps L rail ascending mod I Days to Meet Goals 5 Frequency of Treatment Frequency Of Treatment Twice a Day Treatment Plan Physical Therapy Treatment Plan Bed Mobility Training,Transfer Training,Gait Training, Therapeutic Exercise,Balance Retraining,Post Op Education, Discharge Planning,Hot or Cold Pack,Neuromuscular Re-ed, Coordination Retraining,Manual Therapy Weight Bearing Status Weight Bearing Status Weight Bear as Tolerated Allowed Weight Bearing Amount (enter % RLE WBAT or #) (%) Recommendations To Nursing Amount of Assist Needed 1 Person Assist Discharge Recommendations PT Discharge Recommendations Home with Assistance, Outpatient PT Transportation Needs at Discharge Private Vehicle
[2022-07-22] MEDS: INFLUENZA HD VACCINE 0.7 ML SYRINGE IM (11:22)
== END 2022-07-22 12:45 | disposition home or self-care (01) ==
LOC: OR 11:21 → AC 14:09
PROVIDERS: PCP Family Medicine; Referring Provider Orthopaedic Surgery; Visit Provider Orthopaedic Surgery
PROC: 0SRC0JZ Replacement of Right Knee Joint with Synthetic Substitute, Open Approach (ICD-10-PCS; CPT 27447; principal; 2022-07-21 13:15)
DX: M17.11 Unilateral primary osteoarthritis, right knee (principal)
CPT/HCPCS: 27447; 36415; 73560; 85014; 85018; 90471; 90662; 97161; 97530; C1776; C1713; C9290; J0171; J0690; J2250; J2270; J3010

== ENCOUNTER 2023-10-10 20:15 | Emergency (ER) | payer MEDICARE, SELFPAY ==
[2022-07-21 16:27] VITALS: BMI 26.2
[2023-10-10 20:17] VITALS: BP 159/75; PULSE 89; RESP 18; TEMP 36.9; O2SAT 96; BMI 25.8
--- NOTE | 2023-10-10 20:26 | DI.RAD.S_ITS ---
PROCEDURE: XR CHEST 2V INDICATIONS: cough fever TECHNIQUE: 2 views of the chest were acquired. COMPARISON: [facility], CHEST 2 VIEW, 10/16/2015, 15:23. [facility], CHEST 1 VIEW, 01/03/2017, 13:16. FINDINGS: Surgical changes and devices: None. Lungs and pleura: There is a radiopaque foreign body in the right lower lower lobe. Mild right lower lobe atelectasis. Small nodules in the lower lung zones bilaterally are probably nipple shadows. No pleural effusions or pneumothorax. Mediastinum: Mediastinal contours are normal. Heart size is normal. Bones and chest wall: No suspicious bony abnormalities. Soft tissues appear unremarkable. IMPRESSION: 1. Mild right lower lobe atelectasis. 2. A radiopaque foreign body in the right lower lobe. Please correlate with clinical history. Dictated by: Molina Singletary M.D. on 10/10/2023 at 20:58 Approved by: Mloina Singletary M.D. on 10/10/2023 at 21:03
[2023-10-10 21:07] LABS: Influenza A - CEPHEID Flu A POSITIVE (NEGATIVE); Influenza B - CEPHEID Flu B NEGATIVE (NEGATIVE); Respiratory Syncytial Virus Negative (Negative)
[2023-10-10 21:08] LABS: COVID-19 CEPHEID 4-PLEX PCR Negative (Negative)
[2023-10-10 22:04] VITALS: O2SAT 96
[2023-10-10 22:05] LABS: Add Manual Diff / Slide Review NO; Appearance Urine UA CLEAR; Basophils Absolute Auto 0 /uL (0-100); Basophils Percent Auto 0.8 % (0-2); Bilirubin Urine UA NEGATIVE (NEGATIVE); Color Urine UA YELLOW; Eosinophils Absolute Auto 200 /uL (0-450); Eosinophils Percent Auto 2.9 % (2-4); Glucose Urine UA NEGATIVE (Negative); Hematocrit 39.3 % (41-53); Hemoglobin 13.6 g/dL (13.5-17.5); Ketones Urine UA NEGATIVE (NEGATIVE); Leukocyte Esterase Urine UA NEGATIVE (NEGATIVE); Lymphocytes Absolute Auto 800 /uL (1100-4500); Lymphocytes Percent Auto 13.3 % (25-40); Mean Corpuscular HGB Conc 34.7 % (30-36); Mean Corpuscular Hemoglobin 32.9 PG (26-34); Monocytes Absolute Auto 900 /uL (0-900); Monocytes Percent Auto 13.9 % (3-14); Neutrophils Absolute Auto 4300 /uL (1500-7000); Neutrophils Percent Auto 69.1 % (50-75); Nitrite Urine UA NEGATIVE (Negative); Occult Blood Urine UA 2+ (Negative); Platelet Count 156 X10^3/uL (150-400); Protein Urine UA NEGATIVE (Negative); Red Blood Cell Count 4.13 X10^6/uL (4.5-5.9); Red Cell Distribution Width 13.1 % (11.6-14.8); Specific Gravity Urine UA >=1.030 (1.000-1.035); Urobilinogen Urine UA 0.2 E.U./dL (0.2); White Blood Cell Count 6.3 X10^3/uL (4.5-11.0)
[2023-10-10 22:06] VITALS: BP 167/71; PULSE 82; O2SAT 96
[2023-10-10 22:11] LABS: Urine Volume 10mL (spun)
[2023-10-10 22:13] LABS: Bacteria Urine Occasional (0-1); RBC Urine 1-5/HPF (0-5/HPF); Squamous Epithelial Cell Urine 0-1 /HPF (0-5/HPF); WBC Urine None Seen (0-5/HPF)
[2023-10-10 22:14] LABS: Alanine Aminotransferase 32 IU/L (<50); Albumin 4.2 g/dL (3.5-5.0); Albumin Globulin Ratio 1.2 (1.0-2.8); Alkaline Phosphatase 52 U/L (38-126); Aspartate Aminotransferase 35 IU/L (17-59); BUN Creatinine Ratio 19.8 (6-22); Bilirubin Total 0.5 mg/dL (0.2-1.3); Blood Urea Nitrogen 23 mg/dL (9-20); Calcium 8.6 mg/dL (8.4-10.2); Carbon Dioxide 23 mmol/L (22-32); Chloride 100 mmol/L (98-107); Culture Indicated Urine Cult Not Indicated; Estimated Glomerular Filt Rate > 60 mL/min (>60); Globulin 3.4 g/dL (1.7-4.1); Glucose 125 mg/dL (80-110); HEMOLYSIS < 15 (0-50); Potassium 4.1 mmol/L (3.4-5.1); Sodium 134 mmol/L (137-145); Total Protein 7.6 g/dL (6.3-8.2); Uric Acid Crystals Urine Few
[2023-10-10 22:15] LABS: Lactate (Lactic Acid) 0.8 mmol/L (0.7-2.1)
[2023-10-10 22:30] VITALS: PULSE 79; O2SAT 95
[2023-10-10 22:31] LABS: Procalcitonin 0.09 ng/mL (<0.5)
[2023-10-10 23:00] VITALS: PULSE 77; O2SAT 95
--- NOTE | 2023-10-10 23:01 | DI.RAD.S_ITS ---
PROCEDURE: XR CHEST 1V INDICATIONS: re evaluat FB TECHNIQUE: One view of the chest was acquired. COMPARISON: [facility], CR, XR CHEST 2V, 10/10/2023, 20:35. [facility], CT, CT CHEST W CON, 10/11/2023, 0:25. FINDINGS: Surgical changes and devices: None. Lungs and pleura: Lungs are clear. No pleural effusions or pneumothorax. Mediastinum: Mediastinal contours appear normal. Heart size is normal. Bones and chest wall: No suspicious bony lesions. Overlying soft tissues appear unremarkable. IMPRESSION: 1. No acute cardiopulmonary abnormality is seen. 2. Again noted is a radiopaque foreign body in the right lower lung zone. Dictated by: Molina Singletary M.D. on 10/11/2023 at 0:48 Approved by: Molina Singletary M.D. on 10/11/2023 at 0:48
--- NOTE | 2023-10-10 23:02 | ED.URI ---
HPI - URI/Sore Throat General Chief Complaint: Upper Respiratory Symptoms Stated Complaint: flu/fever 103 Time Seen by Provider: 10/10/23 21:13 Source: patient Mode of arrival: Ambulatory History of Present Illness HPI Narrative: This is an 83-year-old male who is previously healthy. He arrives by private vehicle with chief complaint of a fever today. Patient reports he got out of a hot shower his temperature was a 103? at home. Also says that he has been coughing for 5 days. Oral intake has been maintained he has not feeling weak he has not short of breath he has not had nausea or vomiting no urinary symptoms. He was noted to have a metallic foreign body projecting over the right chest on x-ray. Patient believes that this may have been on items of clothing, he does not recall having any metallic foreign body in his chest. Related Data Home Medications Medication Instructions Recorded Confirmed clobetasol 0.05 % scalp solution topical 08/06/23 08/06/23 ketoconazole 2 % shampoo topical 08/06/23 08/06/23 Previous Rx's Medication Instructions Recorded acetaminophen 325 mg tablet 650 mg (2 x 325 mg) PO Q6HR #250 07/22/22 tabs aspirin 81 mg tablet,delayed 81 mg PO BID #84 tabs 07/22/22 release ibuprofen 400 mg tablet 400 mg PO Q4HR #250 tabs 07/22/22 oxycodone 5 mg tablet 5 mg PO Q4H PRN Pain, Moderate 07/22/22 (4-6) #40 tabs Allergies Allergy/AdvReac Type Severity Reaction Status Date / Time bacitracin Allergy Intermediate Verified 08/06/23 12:03 [From Neosporin ([id number])] neomycin Allergy Intermediate Verified 08/06/23 12:03 [From Neosporin ([id number])] polymyxin B Allergy Intermediate ITCHING Verified 08/06/23 12:03 [From Neosporin ([id number])] Patient History Medical History (Updated 10/11/23 @ 00:12 by River Guerrero MD) Arthritis Depression Gout Osteoarthritis Enlarged prostate Elevated cholesterol Hearing impaired Surgical History (Updated 07/13/22 @ 14:13 by Kimberlyn Wilder RN) Hx of thumb surgery Hx of tonsillectomy Social History household members: spouse Smoking Status: Former smoker alcohol intake: current Smoking Status: Former smoker alcohol intake frequency: a few times a week Substance Use Type: does not use Exam Narrative Exam Narrative: Alert, no acute distress HEENT: Normocephalic, atraumaitic moist mucus membranes Neck: Supple no midline tenderness Lungs: Clear to ascultaion, no respiratory distress Heart: Regular rhythm and rate no murmur Abdomen: Normal bowel sounds, soft and nontender Extremeties: Full range of motion no deformity Neuro: Alert and oriented, normal speech moves x4 He is afebrile on triage vital signs with a normal oxygen saturation Initial Vital Signs Initial Vital Signs: Vital Signs Temperature 98.5 F 10/10/23 20:17 Pulse Rate 89 10/10/23 20:17 Respiratory Rate 18 10/10/23 20:17 Blood Pressure 159/75 H 10/10/23 20:17 Pulse Oximetry 96 10/10/23 20:17 Oxygen Delivery Method Room Air 10/10/23 20:17 Course Orders Ordered: ED Orders 10/10/23 21:50 CBC Auto Diff [Complete Blood Count AUTO DIFF] Stat CMP [Comprehensive Metabolic Panel] Stat Lactate (Lactic Acid) Stat Procalcitonin Stat UA dip [Urinalysis Screen (Dip Only)] Stat Urine Microscopic Stat 10/10/23 22:28 Blood Culture Stat 10/10/23 23:01 Chest [XR chest 1V] Stat 10/11/23 00:12 CT chest w con Stat Consultations Consultation #1: D/W radiology, Dr Singletary, FB in bronchus Consultation #2: D/W [facility] Ramirez, hospitalist, declines transfer, can be cared for elsewhere Vital Signs Vital signs: Vital Signs - 8 hr 10/10/23 22:30 10/10/23 23:00 10/10/23 23:31 Pulse Rate 79 77 78 Respiratory Rate Blood Pressure Pulse Oximetry 95 95 94 Oxygen Delivery Method Room Air Room Air 10/11/23 00:00 10/11/23 00:43 10/11/23 00:43 Pulse Rate 74 74 Respiratory Rate 19 Blood Pressure 127/67 Pulse Oximetry 93 96 Oxygen Delivery Method Room Air 10/11/23 01:00 10/11/23 01:00 10/11/23 01:30 Pulse Rate 76 75 Respiratory Rate Blood Pressure 142/75 H Pulse Oximetry 93 95 Oxygen Delivery Method Room Air Room Air 10/11/23 01:30 10/11/23 02:00 10/11/23 02:00 Pulse Rate 78 Respiratory Rate 18 Blood Pressure 155/76 H 149/73 H Pulse Oximetry 94 Oxygen Delivery Method Room Air 10/11/23 02:30 10/11/23 02:30 10/11/23 03:00 Pulse Rate 74 74 Respiratory Rate 20 Blood Pressure 166/81 H Pulse Oximetry 95 95 Oxygen Delivery Method Room Air Room Air 10/11/23 03:01 10/11/23 03:01 10/11/23 03:30 Pulse Rate 76 76 Respiratory Rate 19 Blood Pressure 131/71 Pulse Oximetry 94 93 Oxygen Delivery Method Room Air 10/11/23 03:30 10/11/23 04:00 10/11/23 04:00 Pulse Rate 75 Respiratory Rate 20 Blood Pressure 149/81 H 144/76 H Pulse Oximetry 95 Oxygen Delivery Method Room Air 10/11/23 04:30 10/11/23 04:30 Pulse Rate 81 Respiratory Rate Blood Pressure 128/65 Pulse Oximetry 93 Oxygen Delivery Method Room Air MDM - URI/Sore Throat Lab Data Lab results narrative: CBC with diff and CMP are unremarkable, is positive for influenza A 10/10/23 21:50 10/10/23 21:50 Labs: Lab Results 10/10/23 10/10/23 Range/Units 20:25 21:50 WBC 6.3 (4.5-11.0) X10^3/uL RBC 4.13 L (4.5-5.9) X10^6/uL Hgb 13.6 (13.5-17.5) g/dL Hct 39.3 L (41-53) % MCV 95.0 (80-100) fL MCH 32.9 (26-34) PG MCHC 34.7 (30-36) % RDW 13.1 (11.6-14.8) % Plt Count 156 (150-400) X10^3/uL Neut % (Auto) 69.1 (50-75) % Lymph % (Auto) 13.3 L (25-40) % [place] % (Auto) 13.9 (3-14) % Eos % (Auto) 2.9 (2-4) % Baso % (Auto) 0.8 (0-2) % Neut # (Auto) 4300 (3467-7624) /uL Lymph # (Auto) 800 L (2675-9304) /uL [place] # (Auto) 900 (0-900) /uL Eos # (Auto) 200 (0-450) /uL Baso # (Auto) 0 (0-100) /uL Sodium 134 L (137-145) mmol/L Potassium 4.1 (3.4-5.1) mmol/L Chloride 100 (98-107) mmol/L Carbon Dioxide 23 (22-32) mmol/L BUN 23 H (9-20) mg/dL Creatinine 1.16 (0.66-1.25) mg/dL Estimated GFR > 60 (>60) mL/min BUN/Creatinine Ratio 19.8 (6-22) Glucose 125 H (80-110) mg/dL Lactate 0.8 (0.7-2.1) mmol/L Calcium 8.6 (8.4-10.2) mg/dL Total Bilirubin 0.5 (0.2-1.3) mg/dL AST 35 (17-59) IU/L ALT 32 (<50) IU/L Alkaline Phosphatase 52 (38-126) U/L Total Protein 7.6 (6.3-8.2) g/dL Albumin 4.2 (3.5-5.0) g/dL Globulin 3.4 (1.7-4.1) g/dL Albumin/Globulin Ratio 1.2 (1.0-2.8) Procalcitonin 0.09 (<0.5) ng/mL Urine Color Yellow Urine Appearance Clear Urine pH 5.0 (4.5-8.0) Ur Specific [place] >=1.030 H (1.000-1.035) Urine Protein Negative (Negative) Urine Glucose (UA) Negative (Negative) g/dL Urine Ketones Negative (NEGATIVE) Urine Occult Blood 2+ H (Negative) Urine Nitrate Negative (Negative) Urine Bilirubin Negative (NEGATIVE) Urine Urobilinogen 0.2 (0.2) E.U./dL Ur Leukocyte Esterase Negative (NEGATIVE) Urine RBC 1-5/hpf (0-5/HPF) Urine WBC None seen (0-5/HPF) Ur Squamous Epith Cells 0-1 /hpf (0-5/HPF) Uric Acid Crystals Few H (None) Urine Bacteria Occasional (0-1) (None) Ur Culture Indicated? Cult not indicated Vol Urine Centrifuged 10ml (spun) SARS-CoV-2 (PCR) Negative (Negative) Influenza A (RT-PCR) Flu a positive H (NEGATIVE) Influenza B (RT-PCR) Flu b negative (NEGATIVE) RSV (PCR) Negative (Negative) Imaging Data CT scan - chest: My Impression: Radiopaque foreign body and bronchus of right lung Radiologist's Impression: [address] [address] [address] Scan Report Signed Patient: Hawk Donnelly MR#: [id number] : 1940 Acct:[id number] Age/Sex: 83 / M Date of Service: 10/11/23 Loc: ED Accession Number: [id number] Procedure: CT chest w con Ordering Provider: River Guerrero MD PROCEDURE: CT CHEST W CON INDICATIONS: aspirated FB TECHNIQUE: After the administration of intravenous contrast, 5 mm thick sections acquired from the pulmonary apices to the posterior costophrenic angles. 1 mm axial lung, 5 mm thick coronal and sagittal reformats and 7 mm axial MIP were acquired. For radiation dose reduction, the following was used: automated exposure control, adjustment of mA and/or kV according to patient size. COMPARISON: [facility], CHEST 1 VIEW, 01/03/2017, 13:16. [facility], XR CHEST 1V, 10/10/2023, 23:06. [facility], XR CHEST 2V, 10/10/2023, 20:35. [facility], CHEST 2 VIEW, 10/16/2015, 15:23. FINDINGS: Image quality: Diagnostic. Lower Neck: No enlarged lymph nodes. Thyroid: No thyroid nodules which require sonographic follow up, per consensus guidelines. Axillae: No enlarged lymph nodes. Chest Wall: Unremarkable. Bones: Unremarkable. Lungs and Pleura: No pneumothorax or pleural effusions. There is a 1.1 cm metallic foreign body within the posterior basal segmental bronchus of the right lower lobe. There is right lower lobe atelectasis. Heart: Heart size is normal. No pericardial effusion. Thoracic Vessels: The aorta and pulmonary arteries demonstrate normal size. Mediastinum and Gisselle: No enlarged lymph nodes. Esophagus: No wall thickening. No hiatal hernia. Upper Abdomen: Visualized upper abdomen solid organs and bowel loops appear normal. IMPRESSION: 1. 1.1 cm radiopaque foreign body within the posterior basal segmental bronchus. 2. Right lower lobe atelectasis. Dictated by: Molina Singletary M.D. on 10/11/2023 at 0:49 Approved by: Molina Singletary M.D. on 10/11/2023 at 0:57 Chest x-ray: My Impression: Radiopaque foreign body in right lung Radiologist's Impression: Radio opaque foreign body in right lung, see CT MDM Narrative Medical decision making narrative: 83-year-old man with good underlying health presenting with a cough. He has not hypoxic, there was a history of a fever at home. He has not febrile here. He did test positive for influenza however he has been symptomatic for several days and I do not think treating him with Tamiflu is appropriate for that reason. More concerning is the finding of a foreign body in a bronchus. Interestingly the patient has no idea how he might have aspirated a foreign body. Eyes airway is intact and he appears to be stable, he needs a bronchoscopy urgently, and he will be held in the emergency department until this can be arranged either by transfer or discharge for outpatient bronchoscopy in a short interval Discharge Plan Departure [facility] Clinical Impression: Influenza A Aspiration of foreign body Qualifiers: Encounter type: initial encounter Qualified Code(s): T17.908A - Unspecified foreign body in respiratory tract, part unspecified causing other injury, initial encounter Cough Qualifiers: Cough type: acute Qualified Code(s): R05.1 - Acute cough Prescriptions: No Action clobetasol 0.05 % solution topical ketoconazole 2 % shampoo topical acetaminophen 325 mg Tablet 650 mg PO Q6HR Qty: 250 0RF aspirin 81 mg Tablet,Delayed Release (Dr/Ec) 81 mg PO BID Qty: 84 0RF ibuprofen 400 mg Tablet 400 mg PO Q4HR Qty: 250 0RF oxycodone 5 mg Tablet 5 mg PO Q4H PRN (Reason: Pain, Moderate (4-6)) Qty: 40 0RF Referrals: Neto Benítez MD [Primary Care Provider] -
[2023-10-10 23:31] VITALS: PULSE 78; O2SAT 94
[2023-10-11] VITALS (25 sets, daily range): BP systolic 119–166; BP diastolic 58–81; PULSE 67–83; RESP 18–20; O2SAT 93–96
--- NOTE | 2023-10-11 00:12 | DI.CT.S_ITS ---
PROCEDURE: CT CHEST W CON INDICATIONS: aspirated FB TECHNIQUE: After the administration of intravenous contrast, 5 mm thick sections acquired from the pulmonary apices to the posterior costophrenic angles. 1 mm axial lung, 5 mm thick coronal and sagittal reformats and 7 mm axial MIP were acquired. For radiation dose reduction, the following was used: automated exposure control, adjustment of mA and/or kV according to patient size. COMPARISON: [facility], , CHEST 1 VIEW, 01/03/2017, 13:16. [facility], CR, XR CHEST 1V, 10/10/2023, 23:06. [facility], CR, XR CHEST 2V, 10/10/2023, 20:35. [facility], , CHEST 2 VIEW, 10/16/2015, 15:23. FINDINGS: Image quality: Diagnostic. Lower Neck: No enlarged lymph nodes. Thyroid: No thyroid nodules which require sonographic follow up, per consensus guidelines. Axillae: No enlarged lymph nodes. Chest Wall: Unremarkable. Bones: Unremarkable. Lungs and Pleura: No pneumothorax or pleural effusions. There is a 1.1 cm metallic foreign body within the posterior basal segmental bronchus of the right lower lobe. There is right lower lobe atelectasis. Heart: Heart size is normal. No pericardial effusion. Thoracic Vessels: The aorta and pulmonary arteries demonstrate normal size. Mediastinum and Gisselle: No enlarged lymph nodes. Esophagus: No wall thickening. No hiatal hernia. Upper Abdomen: Visualized upper abdomen solid organs and bowel loops appear normal. IMPRESSION: 1. 1.1 cm radiopaque foreign body within the posterior basal segmental bronchus. 2. Right lower lobe atelectasis. Dictated by: Molina Singletary M.D. on 10/11/2023 at 0:49 Approved by: Molina Singletary M.D. on 10/11/2023 at 0:57
--- NOTE | 2023-10-11 00:30 | PC.NURSE ---
to CT per wc
--- NOTE | 2023-10-11 06:37 | PC.NURSE ---
f/U with [facility] after 0800 10/11/23 to find out availability to perform bronchoscopy if appropriate for out pt tx.
--- NOTE | 2023-10-11 06:41 | PC.NURSE ---
Placement attempts for Bronchoscopy at [facility] no availibility... 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 [facility] also working on options
[2023-10-11] MEDS: SODIUM CHLORIDE 0.9% 1,000 ML 125 ML IV (06:42)
== END 2023-10-11 11:35 | disposition home or self-care (01) ==
PROVIDERS: Emergency Medicine; Emergency Provider Emergency Medicine; PCP Family Medicine
DX: J10.1 Influenza due to other identified influenza virus with other respiratory manifestations (principal); T17.908A Unspecified foreign body in respiratory tract, part unspecified causing other injury, initial encounter; R05.1 Acute cough; Z20.822 Contact with and (suspected) exposure to COVID-19
CPT/HCPCS: 0241U; 36415; 71045; 71046; 71260; 80053; 81003; 81015; 83605; 84145; 85025; 87040; 99284; Q9967

== ENCOUNTER → 2024-03-13 13:26 | Outpatient (CLI) | payer MEDICARE, SELFPAY ==
[2022-07-21 16:27] VITALS: BMI 26.2
--- NOTE | 2024-03-13 13:27 | DI.CT.S_ITS ---
PROCEDURE: CT CHEST WO CON INDICATIONS: Foreign body in lung TECHNIQUE: Noncontrast 5 mm thick sections acquired from the pulmonary apices to the posterior costophrenic angles. 1 mm lung window, 5 mm thick coronal and sagittal and 7 mm axial MIP reformats were then acquired. For radiation dose reduction, the following was used: automated exposure control, adjustment of mA and/or kV according to patient size. COMPARISON: [facility], CR, XR CHEST 1V, 10/10/2023, 23:06. [facility], CT, CT CHEST W CON, 10/11/2023, 0:25. FINDINGS: Image quality: Diagnostic. Lower Neck: No enlarged lymph nodes. Thyroid: No thyroid nodules which require sonographic follow up, per consensus guidelines. Axillae: No enlarged lymph nodes. Chest Wall: Unremarkable. Bones: Unremarkable. Lungs and Pleura: No pneumothorax or pleural effusions. Basilar predominant reticulation without honeycombing. Mild bronchiectasis. Stable radiopaque foreign body within the dependent medial right lower lobe segmental bronchus. Heart: Heart size is enlarged. No pericardial effusion. Moderate LAD calcifications. Thoracic Vessels: Dilated ascending aorta measuring 4.3 cm. Mediastinum and Gisselle: No enlarged lymph nodes. Esophagus: No wall thickening. No hiatal hernia. Patulous esophagus. Upper Abdomen: Visualized upper abdomen solid organs and bowel loops appear normal. IMPRESSION: Stable radiopaque foreign body within the dependent, medial right lower lobe segmental bronchus. Patulous esophagus and peripheral reticulation of the lungs. 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 Correlate with symptoms. Mild dilation of the ascending aorta, measuring 4.3 cm. This is unchanged from prior. Dictated by: Walter Becerra M.D. on 03/13/2024 at 15:26 Approved by: Walter Becerra M.D. on 03/13/2024 at 15:30
== END ==
PROVIDERS: PCP Family Medicine; Referring Provider Internal Medicine Critical Care Medicine; Visit Provider Internal Medicine Critical Care Medicine
DX: T17.808A Unspecified foreign body in other parts of respiratory tract causing other injury, initial encounter (principal); I77.810 Thoracic aortic ectasia
CPT/HCPCS: 71250

== ENCOUNTER 2024-11-21 11:40 | Emergency (ER) | payer MEDICARE, SELFPAY ==
[2022-07-21 16:27] VITALS: BMI 26.2
[2024-11-21 11:42] VITALS: BP 170/74; PULSE 83; RESP 18; TEMP 37.1; O2SAT 98; BMI 24.0
--- NOTE | 2024-11-21 11:46 | DI.RAD.S_ITS ---
PROCEDURE: XR CHEST 1V INDICATIONS: chest pain TECHNIQUE: One view of the chest was acquired. COMPARISON: [facility], CR, XR CHEST 1V, 10/10/2023, 23:06. FINDINGS: Surgical changes and devices: None. Lungs and pleura: Lungs are clear. No pleural effusions or pneumothorax. Mediastinum: Mediastinal contours appear normal. Heart size is normal. Bones and chest wall: No suspicious bony lesions. Overlying soft tissues appear unremarkable. IMPRESSION: No acute pulmonary process. Dictated by: Chiqui Juarez M.D. on 11/21/2024 at 12:02 Approved by: Chiqui Juarez M.D. on 11/21/2024 at 12:02
--- NOTE | 2024-11-21 11:46 | EKG_ITS ---
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
[2024-11-21 11:49] VITALS: PULSE 74; O2SAT 98
--- NOTE | 2024-11-21 11:49 | ED.ARRPALP ---
HPI - Arrhythmia/Palpitations General Chief Complaint: Arrhythmia/Palpitations Stated Complaint: heart bubbles makes me shake and weak Time Seen by Provider: 11/21/24 11:49 Source: patient Mode of arrival: Ambulatory History of Present Illness HPI narrative: 84-year-old male with a past medical history of TIA comes into the ED from home for evaluation of what he describes as ?heart bubbles ongoing intermittent for the past 2 months. States that he feels like this gets worse with activity, states that he has also been feeling slightly weak/[place]ipolito but denies any actual chest pain shortness of breath. He states he did take 160 mg of aspirin this morning prior to arrival. When he asked the patient to describe his symptoms he states it is more like palpitations, he denies any other symptoms at this time such as chest pain shortness breath fever chills nausea vomiting abdominal pain or any other GI/ symptoms at this time Related Data Home Medications Medication Instructions Recorded Confirmed clobetasol 0.05 % scalp solution topical 08/06/23 05/29/24 ketoconazole 2 % shampoo topical 08/06/23 05/29/24 Previous Rx's Medication Instructions Recorded acetaminophen 325 mg tablet 650 mg (2 x 325 mg) PO Q6HR #250 07/22/22 tabs aspirin 81 mg tablet,delayed 81 mg PO BID #84 tabs 07/22/22 release Allergies Allergy/AdvReac Type Severity Reaction Status Date / Time bacitracin Allergy Intermediate Verified 05/29/24 13:23 [From Neosporin ([id number])] neomycin Allergy Intermediate Verified 05/29/24 13:23 [From Neosporin ([id number])] polymyxin B Allergy Intermediate ITCHING Verified 05/29/24 13:23 [From Neosporin ([id number])] Review of Systems Review of Systems Narrative: General: Denies fever, chills, weight loss HEENT: Denies headache, eye drainage, eye irritation, head trauma, sore throat, voice change Cardiovascular: Positive palpitations Denies any chest pain, tachycardia Respiratory: Denies any shortness of breath, cough, wheeze, stridor GI/: Denies any abdominal pain, nausea, vomiting, diarrhea, bright red blood per rectum, melanotic stools, urinary frequency, urinary retention, dysuria, hematuria MSK: Denies any joint pain, muscle pains, swelling Skin: Denies any rashes, lesions, discoloration Neuro: Denies any headache, lightheadedness, dizziness, fainting, weakness Psych: Denies SI/HI Patient History Medical History Arthritis Depression Gout Osteoarthritis Enlarged prostate Elevated cholesterol Hearing impaired Surgical History Hx of thumb surgery Hx of tonsillectomy Social History household members: spouse Smoking Status: Former smoker alcohol intake: current Smoking Status: Former smoker alcohol intake frequency: a few times a week Exam Narrative Exam Narrative: General: Cooperative, comfortable, well-developed, not in acute distress HEENT: Normocephalic, atraumatic, PERRLA, normal sclera, eyelids normal, Neck: Active full range of motion, atraumatic Chest: Normal to inspection, negative crepitus, no overlying erythema ecchymosis Respiratory: Normal respiratory effort, not in acute respiratory distress, clear to auscultation bilaterally negative cough, wheeze, tachypnea, rhonchi, rales Cardiology: Regular rate rhythm negative gallop, murmur, rubs GI/: Normal to inspection, soft, nonrigid, no tenderness to palpation, exam deferred MSK: Full range of active range of motion of all 4 extremities, atraumatic Skin: No rashes lesions noted Neuro: Alert awake oriented x3, moves all 4 extremities spontaneously, cranial nerves intact, able to answer all questions appropriately follows commands appropriately Psych: Cooperative, negative suicidal or homicidal ideations Initial Vital Signs Initial Vital Signs: Vital Signs Temperature 98.7 F 11/21/24 11:42 Pulse Rate 83 11/21/24 11:42 Respiratory Rate 18 11/21/24 11:42 Blood Pressure 170/74 H 11/21/24 11:42 Pulse Oximetry 98 11/21/24 11:42 Oxygen Delivery Method Room Air 11/21/24 11:42 Course Orders Ordered: ED Orders 11/21/24 11:46 XR chest 1V Stat EKG-12 Lead Stat 11/21/24 11:56 Complete Blood Count AUTO DIFF Stat Comprehensive Metabolic Panel Stat Lipase Stat Magnesium Stat NT-proBNP (BNP-Adult 18+) Stat PTT Partial Thromboplastin Nikolas Stat Prothrombin Time INR Stat TSH [Thyroid Stimulating Hormone] Stat Troponin & CK Cardiac Panel Stat Discontinued Medications Aspirin (Aspirin 81 Mg Chew Tab) 324 mg PO NOW ONE Stop: 11/21/24 11:47 Last Admin: 11/21/24 12:07 Dose: Not Given Documented By: CTS Vital Signs Vital signs: Vital Signs - 8 hr 11/21/24 11:42 11/21/24 11:49 11/21/24 12:00 Temperature 98.7 F Pulse Rate 83 74 71 Respiratory Rate 18 10 L Blood Pressure 170/74 H Pulse Oximetry 98 98 97 Oxygen Delivery Method Room Air MDM - Arrhythmia/Palpitations Differential Diagnosis Differential diagnosis: Likely palpitations, anxiety, sinus tachycardia, artial fibrillation, artial flutter, ventricular premature beats and other (ACS, pneumonia, electrolyte abnormality) Lab Data 11/21/24 11:56 11/21/24 11:56 Labs: Lab Results 11/21/24 Range/Units 11:56 WBC 5.8 (4.5-11.0) X10^3/uL RBC 4.10 L (4.5-5.9) X10^6/uL Hgb 13.2 L (13.5-17.5) g/dL Hct 38.4 L (41-53) % MCV 93.8 (80-100) fL MCH 32.1 (26-34) PG MCHC 34.3 (30-36) % RDW 13.1 (11.6-14.8) % Plt Count 216 (150-400) X10^3/uL Neut % (Auto) 66.2 (50-75) % Lymph % (Auto) 20.6 L (25-40) % Angelina % (Auto) 10.0 (3-14) % Eos % (Auto) 2.5 (2-4) % Baso % (Auto) 0.7 (0-2) % Neut # (Auto) 3800 (9349-5334) /uL Lymph # (Auto) 1200 (1071-7113) /uL Angelina # (Auto) 600 (0-900) /uL Eos # (Auto) 100 (0-450) /uL Baso # (Auto) 0 (0-100) /uL PT 11.4 (9.4-12.5) SECONDS INR 1.0 (0.9-1.3) APTT 34 (25.1-36.5) SECONDS Sodium 136 L (137-145) mmol/L Potassium 4.8 (3.4-5.1) mmol/L Chloride 106 (98-107) mmol/L Carbon Dioxide 19 L (22-32) mmol/L BUN 25 H (9-20) mg/dL Creatinine 1.27 H (0.66-1.25) mg/dL Estimated GFR 55 L (>60) mL/min BUN/Creatinine Ratio 19.7 (6-22) Glucose 161 H (80-110) mg/dL Calcium 8.7 (8.4-10.2) mg/dL Magnesium 2.0 (1.6-2.3) mg/dL Total Bilirubin 0.8 (0.2-1.3) mg/dL AST 52 (17-59) IU/L ALT 36 (<50) IU/L Alkaline Phosphatase 57 (38-126) U/L Total Creatine Kinase 91 (55-170) U/L Troponin I 0.019 (0.01-0.034) ng/mL NT-Pro-B Natriuret Pep 88 (<450) pg/mL Total Protein 7.9 (6.3-8.2) g/dL Albumin 4.3 (3.5-5.0) g/dL Globulin 3.6 (1.7-4.1) g/dL Albumin/Globulin Ratio 1.2 (1.0-2.8) Lipase 162 (23-300) U/L Imaging Data Chest x-ray: Radiologist's Impresson: [address] [address] XRay Report Signed Patient: Hawk Donnelly MR#: [id number] : 1940 Acct:[id number] Age/Sex: 84 / M Date of Service: 11/21/24 Loc: ED Accession Number: [id number] Procedure: XR chest 1V Ordering Provider: Benjy Alejo D.O. PROCEDURE: XR CHEST 1V INDICATIONS: chest pain TECHNIQUE: One view of the chest was acquired. COMPARISON: [facility], , XR CHEST 1V, 10/10/2023, 23:06. FINDINGS: Surgical changes and devices: None. Lungs and pleura: Lungs are clear. No pleural effusions or pneumothorax. Mediastinum: Mediastinal contours appear normal. Heart size is normal. Bones and chest wall: No suspicious bony lesions. Overlying soft tissues appear unremarkable. IMPRESSION: No acute pulmonary process. ECG Data Interpretation: EKG interpreted ED physician sinus 77 beats per minute, QTC 398 occasional PVC noted left axis deviation, nonspecific ST changes no STEMI MDM Narrative Medical decision making narrative: 84-year-old male without any significant past medical history presents to the emergency department for evaluation of palpitations that he describes as ?heart bubbles ongoing intermittent for the past 2 months. He denies any actual chest pain shortness of breath. He states that he also has been feeling a little bit weaker overall, but denies any actual fever chills. He states that the palpitations do feel worse whenever he exerts himself but again denies any actual chest pain shortness of breath with this. Patient EKG with PVCs otherwise nonischemic in nature. Patient had lab work chest x-ray performed here without any acute cardiopulmonary abnormality. Lab work without any leukocytosis Chem panel unremarkable troponin negative, TSH normal. Patient was given strict return precautions he verbalized understanding of this and agrees to being discharged home with outpatient follow up with Cardiology and primary care. Discharge Plan Departure Patient Disposition: Home Clinical Impression: Palpitation Instructions: DI for Palpitations Activity Restrictions/Additional Instructions: Please follow up with primary care and Cardiology Please read the discharge instructions sheet carefully and bring all papers to all doctor follow-up visits, as it may contain information that your doctor may want to see. Disease processes change and evolve, if your symptoms worsen or if you develop any new symptoms that are concerning to you please return for evaluation. Your evaluation today does not show any evidence of any life-threatening/serious illnesses requiring admission to the hospital or surgery. Please follow-up with your doctor for re-evaluation in approximately 1 day. Seek immediate medical attention for any worrisome symptoms. *If you do not have a primary care provider please contact the [facility] Resource line at [phone]. They will ask some questions about your medical history and help get you set up with a doctor in the community. Prescriptions: No Action clobetasol 0.05 % solution topical ketoconazole 2 % shampoo topical acetaminophen 325 mg Tablet 650 mg PO Q6HR Qty: 250 0RF aspirin 81 mg Tablet,Delayed Release (Dr/Ec) 81 mg PO BID Qty: 84 0RF Referrals: Dereck Benjamin DO [Primary Care Provider] - Evan Tavares MD [Physician] - Stand Alone Forms: Patient Portal/API/Survey
[2024-11-21 12:00] VITALS: PULSE 71; RESP 10; O2SAT 97
[2024-11-21 12:06] LABS: Add Manual Diff / Slide Review NO; Basophils Absolute Auto 0 /uL (0-100); Basophils Percent Auto 0.7 % (0-2); Eosinophils Absolute Auto 100 /uL (0-450); Eosinophils Percent Auto 2.5 % (2-4); Hematocrit 38.4 % (41-53); Hemoglobin 13.2 g/dL (13.5-17.5); Lymphocytes Absolute Auto 1200 /uL (1100-4500); Lymphocytes Percent Auto 20.6 % (25-40); Mean Corpuscular HGB Conc 34.3 % (30-36); Mean Corpuscular Hemoglobin 32.1 PG (26-34); Mean Corpuscular Volume 93.8 fL (80-100); Monocytes Absolute Auto 600 /uL (0-900); Neutrophils Absolute Auto 3800 /uL (1500-7000); Neutrophils Percent Auto 66.2 % (50-75); Platelet Count 216 X10^3/uL (150-400); Red Cell Distribution Width 13.1 % (11.6-14.8); White Blood Cell Count 5.8 X10^3/uL (4.5-11.0)
--- NOTE | 2024-11-21 12:08 | PC.NURSE ---
pt took full ASA at home therefore order for ASA was DC'd by Dr Alejo
[2024-11-21 12:16] LABS: Prothrombin Time 11.4 SECONDS (9.4-12.5)
[2024-11-21 12:18] LABS: PTT Partial Thromboplastin Tim 34 SECONDS (25.1-36.5)
[2024-11-21 12:20] LABS: Alanine Aminotransferase 36 IU/L (<50); Albumin 4.3 g/dL (3.5-5.0); Albumin Globulin Ratio 1.2 (1.0-2.8); Alkaline Phosphatase 57 U/L (38-126); Aspartate Aminotransferase 52 IU/L (17-59); BUN Creatinine Ratio 19.7 (6-22); Bilirubin Total 0.8 mg/dL (0.2-1.3); Blood Urea Nitrogen 25 mg/dL (9-20); Calcium 8.7 mg/dL (8.4-10.2); Carbon Dioxide 19 mmol/L (22-32); Chloride 106 mmol/L (98-107); Creatine Kinase 91 U/L (55-170); Estimated Glomerular Filt Rate 55 mL/min (>60); Globulin 3.6 g/dL (1.7-4.1); Glucose 161 mg/dL (80-110); HEMOLYSIS 103 (0-50); Lipase 162 U/L (23-300); Potassium 4.8 mmol/L (3.4-5.1); Sodium 136 mmol/L (137-145); Total Protein 7.9 g/dL (6.3-8.2)
[2024-11-21 12:32] LABS: NT-proBNP (BNP-Adult 18+) 88 pg/mL (<450); Troponin I 0.019 ng/mL (0.01-0.034)
[2024-11-21 12:52] LABS: Thyroid Stimulating Hormone 2.22 uIU/mL (0.47-4.68)
== END 2024-11-21 13:02 | disposition home or self-care (01) ==
PROVIDERS: Emergency Provider Student in an Organized Health Care Education/Training Program; PCP Family Medicine
DX: R00.2 Palpitations (principal); Z86.73 Personal history of transient ischemic attack (TIA), and cerebral infarction without residual deficits
CPT/HCPCS: 36415; 71045; 80053; 82550; 83690; 83735; 83880; 84443; 84484; 85025; 85610; 85730; 93005; 99283; 99284

== ENCOUNTER → 2025-04-16 10:32 | Outpatient (CLI) | payer MEDICARE, SELFPAY ==
[2022-07-21 16:27] VITALS: BMI 26.2
--- NOTE | 2025-04-16 10:35 | DI.RAD.S_ITS ---
PROCEDURE: XR KNEE LT 3V INDICATIONS: LEFT KNEE PAIN TECHNIQUE: 3 views of the knee were acquired. COMPARISON: [facility], , KNEE 3V LEFT, 06/20/2017, 12:06. [facility], , XR KNEE RT 1TO2V, 07/21/2022, 15:43. FINDINGS: Bones: No fractures or dislocations. No suspicious bony lesions. There is moderate medial femorotibial joint space narrowing seen, with associated remodeling changes, including subchondral sclerosis and osteophyte formation along the jointline. Osteophyte formation can be seen along the margins of the patella. Soft tissues: There is a mild joint effusion. No suspicious soft tissue calcifications. IMPRESSION: Multifocal osteoarthritic degenerative changes are seen, which are worst involving the medial femorotibial compartment. There is a mild left knee joint effusion. If it would be helpful for clinical management decision making, please consider a dedicated, scheduled knee MRI for further evaluation (assuming that there is no contraindication). Dictated by: Carter Morrison M.D. on 04/16/2025 at 10:21 Approved by: Carter Morrison M.D. on 04/16/2025 at 10:22
== END ==
PROVIDERS: PCP Family Medicine; Referring Provider Physical Medicine & Rehabilitation; Visit Provider Physical Medicine & Rehabilitation
DX: M25.562 Pain in left knee (principal); M25.462 Effusion, left knee; M17.12 Unilateral primary osteoarthritis, left knee; G89.29 Other chronic pain; Z68.25 Body mass index [BMI] 25.0-25.9, adult
CPT/HCPCS: 73562; 99213

== ENCOUNTER 2025-07-09 13:39 | Outpatient (RCR) | payer MEDICARE, SELFPAY ==
[2022-07-21 16:27] VITALS: BMI 26.2
--- NOTE | 2025-07-09 15:46 | PT.OPPOC ---
Physical, Occupational & Speech Therapy At [facility] Current Diagnoses Unilateral primary osteoarthritis, left knee (07/09/25) Pain in left knee (07/09/25) Visit Care Team Role Provider Type Dereck Benjamin DO Family Provider Non-Staff Primary Care Provider Specialty: Family Practice Address: [address] , [place], [address] Email: Anselmo Chino DO Attending Provider Physician Referring Provider Specialty: Interventional Radiology Physiatry Pain Management Address: [address] [place], [address] Phone: Fax: Email: [email or web address] Plan Of Care PT OP: Lower Back/Lower Extremity Start: 07/09/25 13:55 Freq: Status: Active Protocol: Document 07/09/25 13:55 NereydaZ (Rec: 07/09/25 15:45 JIglesia [id number]) Out-Patient Physical Therapy Visit Information Visit Information Visit Type Initial Evaluation Visit Start Time 13:50 Visit Stop Time 14:35 Visit Number 1 Number of MANUFACTURING QUALITY MANAGER Visits 0 Progress Note Due 08/08/25 OP-PT Subjective Patient Comments Patient Comments History of current diagnosis: Patient presents to PT with reports of chronic L knee pain that started bothering him about 8 months ago. He reports no mechanism or precipitating event about 8 months ago. He reports his symptoms are about the same as they were 8 months ago but they have have improved relative to about three weeks ago. He has a history of a R TKA. 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 ( a couple miles every day) Pain location: Medial L knee Pain description: dull sometimes, sharp at times Pain 0-10/10 (current): 0/10 Pain 0-10/10 (worst): 5/10 Pain 0-10/10 (best): 0/10 Aggravating: Going down steps, twisting knee when laying down, squatting down, getting into and out of a car, lifting heavy (pieces of lumber) Alleviating: with knee extended and hip externally rotation while laying supine Function prior to injury: Independent with all ADLs Function current: Independent with all ADLs - limited with going down stairs Patient goals: Improve and manage pain levels Patient Questionnaires Quick Dash- Upper Extremity Quick Dash UE 20 to 39% Impaired (Score 20-39) Impairment Palpation Assessment Location One Palpation Findings Tenderness Palpation Details TTP L medial and lateral joint line Knee Goniometric Range of Motion Knee Measured in Degrees Right Knee ROM WFL Yes Patient Position Supine Flexion Active ( 120 degrees) Flexion Passive ( 120 degrees) Extension Active ( 0 degrees) Extension Passive ( 0 degrees) Left Knee ROM WFL No Patient Position Supine Flexion Active ( 120 degrees) Flexion Passive ( 125 degrees) Extension Active ( 0 degrees) Extension Passive ( 0 degrees) Comments Pain reproduction with end range flexion Knee Strength Knee Manual Muscle Testing Right Flexion (S2) 5 Normal Extension (L3) 5 Normal Left Flexion (S2) 4 Good Extension (L3) 5 Normal Physical Therapy Assessment Goals Three Impairment Pain intensity Short Term Goal (STG Patient will report a reduction in pain at worst to a 3 ) /10 in order to better sleep through the night. STG Duration 3 weeks Medical Office Assistant Goal (LTG) Patient will report a reduction in pain at worst to a 1 /10 in order to better sleep through the night. LTG Duration 6 weeks Two Impairment Gross LE function Short Term Goal (STG Patient will demonstrate a reduction in quick DASH ) score to 22 in order to show a reduction in self- perceived disability. STG Duration 3 weeks Medical Office Assistant Goal (LTG) Patient will demonstrate a reduction in quick DASH score to 17 in order to show a reduction in self- perceived disability. LTG Duration 6 weeks One Impairment Knee flexion load tolerance Short Term Goal (STG Patient will squat to partial depth 60 degrees knee ) flexion with no increases in pain levels. STG Duration 3 weeks Medical Office Assistant Goal (LTG) Patient will squat to partial depth 90 degrees knee flexion with no increases in pain levels. LTG Duration 6 weeks Assessment Summary Assessment Patient presenting to PT with complaints of chronic L knee pain. Functional deficits include descending stairs, squatting down, getting into and out of a car, and turning over while sleeping (twisting). Objective investigation revealed deficits in L knee strength (see objective measures: extension MMT), ROM (See objective measures: L flexion), tenderness to palpation of medial and lateral joint lines, and pain reproduction with end range knee flexion PROM. Presentation is consistent with L knee osteoarthritis and patient will benefit from PT to address deficits and return to prior level of function. Physical Therapy Plan Frequency and Duration Frequency of 2x/Week Treatment Duration of 12 treatment (weeks) Plan of Care Start 07/09/25 Date Plan of Care End 10/07/25 Date Next Visit Focus/Plan Next Note Type Treatment Note Next Visit Plan Initiated treatment with focus on quad strengthening and knee joint loading in pain free ranges. Plan of Care Dates Plan of Care Start Date 07/09/25 Plan of Care End Date 10/07/25 Electronically Signed by: Deisy Murphy, PT 07/09/25 7013 If you are in agreement with this Plan of Care, please return a signed and dated copy. I have reviewed this Plan of Care and certify that the skilled therapy services above are required to meet the patient?s needs. Physician Signature Date Printed Name and Credentials Clinical Instructor Signature Printed Name and Credentials
--- NOTE | 2025-08-12 13:43 | PT.OPDS ---
Current Diagnoses Unilateral primary osteoarthritis, left knee (07/09/25) Pain in left knee (07/09/25) Visit Care Team Role Provider Type Dereck Benjamin DO Family Provider Non-Staff Primary Care Provider Specialty: Family Practice Address: [address] , [place], [address] Email: Anselmo Chion DO Attending Provider Physician Referring Provider Specialty: Interventional Radiology Physiatry Pain Management Address: [address] [place], [address] Phone: Fax: Email: [email or web address] Visit Number Visit Number 1 Discharge Summary PT OP: Lower Back/Lower Extremity Start: 07/09/25 13:55 Freq: Status: Active Protocol: Document 08/12/25 13:41 MATTI (Rec: 08/12/25 13:43 MATTI [id number]) Out-Patient Physical Therapy Visit Information Visit Information Visit Type Discharge Summary Physical Therapy Assessment Assessment Summary Assessment Patient has canceled his remaining PT appointments and is not scheduled for any in the future. He will be discharged at this time due to lack of follow up. Please reference his last PT note on 07/09/2025 for the most recent summery of his L knee.
== END 2025-08-13 13:22 | disposition home or self-care (01) ==
LOC: PHYS 13:39
PROVIDERS: Family Provider Family Medicine; PCP Family Medicine; Referring Provider Physical Medicine & Rehabilitation; Visit Provider Physical Medicine & Rehabilitation
DX: M25.562 Pain in left knee (principal); M17.12 Unilateral primary osteoarthritis, left knee
CPT/HCPCS: 97161